=== PATIENT | male | born 1960 | race Caucasian/White ===

== ENCOUNTER → 2020-12-28 | Outpatient (CLI) | payer BC ==
--- NOTE | 2020-12-28 09:11 | Diagnostic Imaging Report ---
EXAMINATION: Left foot radiographs, 3 views. COMPARISON: None. HISTORY: 60-year-old male, left heel pain. FINDINGS: There are bipartite medial and lateral sesamoids. There is a very small calcaneal heel spur. There is minimal degenerative type enthesopathy at the Achilles tendon insertion. There are vascular calcifications. There is no acute fracture. The joint spaces are well preserved. IMPRESSION: 1. Mild degenerative type calcaneal enthesopathy. 2. Additional radiographic evaluation of the left foot is grossly unremarkable. Dictated by: Dictated on workstation # [id number]
--- NOTE | 2020-12-28 09:12 | Diagnostic Imaging Report ---
EXAMINATION: Right foot radiographs, 3 views. COMPARISON: None. HISTORY: 60-year-old male, right lateral foot pain. FINDINGS: There is a normal variant os trigonum. There is no identified acute fracture. There is no identified radiopaque foreign body. The joint spaces appear well-preserved. There is no bone erosion. There is no prominent focal soft tissue swelling. There is a small well-corticated ossification adjacent to the lateral aspect of the first metatarsophalangeal joint, consistent with a chronic long-standing etiology. IMPRESSION: Grossly unremarkable radiographs of the right foot. Dictated by: Dictated on workstation # [id number]
== END ==
LOC: RAD FS 08:39
PROVIDERS: ATTEND Nurse Practitioner
DX: M77.32 Calcaneal spur, left foot (principal); M79.671 Pain in right foot
CPT/HCPCS: 73630

== ENCOUNTER → 2021-01-04 | Outpatient (CLI) | payer SELFPAY ==
--- NOTE | 2021-01-04 13:00 | Diagnostic Imaging Report ---
INDICATION: Coronary disease. Calcium scoring. Please see separate calcium score. FINDINGS: Images were obtained from the [place] through the lower lungs. The lungs visualized are well aerated. There is a tiny calcified granuloma in the right upper lobe. The lungs are otherwise clear. No mediastinal or hilar adenopathy of pathologic size. There is dense calcification of the coronary arteries. No pleural effusion or pericardial effusion. No blastic or lytic bony changes. IMPRESSION: 1. Benign calcified granulomatous disease. 2. Dense coronary artery calcification. Dictated by: Dictated on workstation # [id number]
== END ==
LOC: RAD FS 10:26
PROVIDERS: ATTEND Family Medicine
DX: I25.10 Atherosclerotic heart disease of native coronary artery without angina pectoris (principal); J84.10 Pulmonary fibrosis, unspecified
CPT/HCPCS: 75571